=== PATIENT | male | born 2000 | race Two or more races ===

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

== ENCOUNTER 2023-07-13 01:07 | Emergency (ER) | payer MEDICAID, OTHER ==
[~2023-07-13] VITALS: Ht 177.8 cm; Wt 79.0 kg
[2023-07-13 01:13] VITALS: O2SAT 98
[2023-07-13] MEDS ORDERED: AMOX-494 MT ×2 (01:57→02:07)
[2023-07-13] MEDS ORDERED: IBUP-2029 MT ×2 (01:57→02:07)
[2023-07-13] MEDS ORDERED: HYDR-4001 MT (02:06)
[2023-07-13] MEDS ORDERED: HYDROCODONE/ACETAMINOPHEN 5/325MG TABLET PO ONE (02:15)
[2023-07-13 02:16] VITALS: BP 178/61; PULSE 74; RESP 16; TEMP 97.8
== END 2023-07-13 02:26 | disposition home or self-care (01) ==
LOC: ER 01:07
DX: K08.89 Other specified disorders of teeth and supporting structures (principal)
CPT/HCPCS: 99283

== ENCOUNTER 2024-07-25 23:08 | Emergency (ER) | payer BC, MEDICAID ==
[~2024-07-25] VITALS: Ht 180.3 cm; Wt 91.0 kg
[~2024-07-25 23:08] MED LIST: AMOX-494 MT; HYDR-4001 MT; IBUP-2029 MT
[2024-07-25 23:34] VITALS: O2SAT 98
[2024-07-25 23:45] VITALS: TEMP 101.7; O2SAT 99
[2024-07-26] MEDS: ONDANSETRON 4MG ODT PO ONE (01:45)
[2024-07-26] MEDS: KETOROLAC 30MG/ML VIAL IM ONE (01:45)
[2024-07-26] MEDS: MAGNESIUM/ALUMINUM HYDROXIDE/SIMETHICONE 30ML UDC PO ONE (01:45)
[2024-07-26 02:45] LABS: CHLORIDE 104 mEq/L (98-107); POTASSIUM 4.2 mEq/L (3.5-5.1); SODIUM 139 mEq/L (136-145)
[2024-07-26 02:46] LABS: CALCIUM 9.6 mg/dL (8.7-10.4); CARBON DIOXIDE 26 mEq/L (21-32)
[2024-07-26 02:51] LABS: CREATININE 1.1 mg/dL (0.6-1.3); GLUCOSE 100 mg/dL (70-105); UREA NITROGEN BLOOD 11 mg/dL (9-23)
[2024-07-26 02:53] LABS: ALANINE AMINOTRANSFERASE 45 IU/L (10-49); ALBUMIN 4.8 g/dL (3.2-4.8); ASPARTATE AMINOTRANSFERASE 49 IU/L (<34); BILIRUBIN TOTAL 0.5 mg/dL (0.1-1.0); HEMATOCRIT. 43.8 % (42.0-52.0); HEMOGLOBIN. 15.2 g/dL (14.0-18.0); MEAN CORPUSCULAR HEMOGLOBIN 30.3 pg (28.0-32.0); MEAN CORPUSCULAR HGB CONC 34.8 g/dL (31.0-37.0); MEAN CORPUSCULAR VOLUME 87.3 fL (80.0-94.0); MEAN PLATELET VOLUME 9.1 fl (7.4-10.4); PLATELET 194 x1000/uL (130-400); PROTEIN TOTAL 7.3 g/dL (6.0-8.3); RED BLOOD CELL COUNT 5.02 mill/uL (4.7-6.1); RED CELL DISTRIBUTION WIDTH 12.6 % (11.6-14.6); WHITE BLOOD COUNT 6.7 x1000/uL (4.5-11.0)
[2024-07-26 03:26] LABS: CLARITY URINE CLEAR (CLEAR); COLOR URINE YELLOW (YELLOW); GLUCOSE URINE NEGATIVE (NEGATIVE); KETONES URINE NEGATIVE (NEGATIVE); LEUKOCYTE ESTERASE URINE NEGATIVE (NEGATIVE); NITRITE URINE NEGATIVE (NEGATIVE); OCCULT BLOOD URINE NEGATIVE (NEGATIVE); PROTEIN URINE NEGATIVE (NEGATIVE); SPECIFIC GRAVITY URINE 1.021 (1.005-1.030)
[2024-07-26 03:52] LABS: DIFFERENTIAL COMMENT 1
[2024-07-26] MEDS ORDERED: FAMO20TA8 MT (04:10)
[2024-07-26] MEDS ORDERED: ONDA4TAB50 MT (04:10)
[2024-07-26] MEDS ORDERED: TOPUD MT (04:10)
[2024-07-26 04:21] VITALS: BP 123/73; PULSE 90; RESP 18
[2024-07-26] MEDS: MAGNESIUM/ALUMINUM HYDROXIDE/SIMETHICONE 30ML UDC PO NR (04:21)
[2024-07-26] MEDS: ONDANSETRON 4MG ODT PO NR (04:21)
[2024-07-26] MEDS: KETOROLAC 30MG/ML VIAL IM NR (04:21)
[2024-07-26 11:49] LABS: PLATELET ESTIMATE NORMAL
== END 2024-07-26 04:21 | disposition home or self-care (01) ==
LOC: ER 23:08
DX: R11.0 Nausea (principal); Z90.49 Acquired absence of other specified parts of digestive tract
CPT/HCPCS: 99283; 80053; 81003; 83690; 85025; 36415; 96372; J1885; Q0162

== ENCOUNTER 2025-06-19 04:10 | Emergency (ER) | payer BC, OTHER ==
[~2025-06-19] VITALS: Ht 177.8 cm; Wt 86.0 kg
[~2025-06-19 04:10] MED LIST changes: +FAMO20TA8 MT; +IBUP-1455 MT; -IBUP-2029 MT; +ONDA4TAB50 MT; +TOPUD MT
[2025-06-19 04:14] VITALS: O2SAT 98
[2025-06-19 04:18] VITALS: BP 107/70; PULSE 65; RESP 18; TEMP 36.7; O2SAT 99
[2025-06-19] MEDS ORDERED: CIPR1DRO2 LEFT EAR (04:43)
[2025-06-19] MEDS ORDERED: NAPR-681 MT (04:43)
== END 2025-06-19 04:58 | disposition home or self-care (01) ==
LOC: ER 04:56
DX: H60.92 Unspecified otitis externa, left ear (principal)
CPT/HCPCS: 99283